=== PATIENT | female | born 1950 | race Caucasian/White ===

== ENCOUNTER 2017-09-19 15:00 | Emergency (ER) | payer OTHER ==
[2017-09-19 15:08] VITALS: BP 147/74; RESP 16; TEMP 98.6; O2SAT 96
[2017-09-19] MEDS ORDERED: PROPARACAINE 0.5% 15 ML OPHT DROP ONE (16:50)
[2017-09-19] MEDS ORDERED: FLUORESCEIN SODIUM 1 MG STRIP OP ONE ×2 (16:55→17:09)
--- NOTE | 2017-09-19 17:04 | EDPHY ---
HPI/HX/ROS/PE/MDM Narrative: CHIEF COMPLAINT: Swollen and painful eye HPI: The patient is a 67 y/o female complaining of a swollen and red eye. She has a history of diabetes with pump, dry eyes, diabetic retinopathy treated with laser, cataract surgery, hypertension, hypercholesterolemia, meningitis, and encephalitis. Yesterday she was scratching her nose when her finger slipped and her nail went into her eye. Since then her eye has been swollen, red, and teary but she is able to see out of it. She has a headache. She denies any other associated symptoms. REVIEW OF SYSTEMS: Aside from elements discussed in the HPI, a comprehensive 10-point review of systems was reviewed and is negative. PMH: Diabetes with pump, dry eyes, cardiac stents, hypertension, hypercholesterolemia, meningitis, encephalitis, diabetic retinopathy laser treatment, cataract surgery SOCIAL HISTORY: Granddaughter at bedside, has a sister nearby, Dr. Dunaway for cataract surgery PHYSICAL EXAM: General:Patient is alert, in no acute distress. ENT: Right eye: triangular shaped corneal abrasions in the 5 o'clock and 2 o' clock positions, no streaming. Irregular pupil in medial aspect. ENT normal except noted. Neck: Normal inspection. Full range of motion. Respiratory:No respiratory distress. Breath sounds normal bilaterally. Cardiovascular: Regular rate and rhythm. Strong peripheral pulses. Normal cap refill. Skin: Normal color. No rash. Warm and dry. Extremities: Normal appearance. Full range of motion. Neuro: Oriented x3. Normal motor function. Normal sensory function. ED Course: I examined the patients eye with dye and found above noted abnormalities. I have asked her to contact her sister to determine what her baseline eye condition is. 1708: I consulted with Dr. Soriano, ophthalmology, regarding this patient. She confirms that the patient's previous procedures could cause a misshaped cornea. I feel she can be released as long as she agrees to follow up with her eye doctor tomorrow. She agrees. Follow-up instructions and return precautions given. MDM: This patient presents with signs and history highly suggestive of corneal abrasion, and this is cofirmed with flurorscein exam. Slit lamp did not reveals signs of globe rupture, but pupil noted to be mildly deformed, and patient is unclear whether this is chronic or new. I discussed the patient's ocular surgical history with the on-call kiln packer, who feels that a deformed pupil is likely secondary to prior surgery, so we will treat her for simple corneal abrasion - she is comfortable with this plan. I stressed the need for her to follow-up with her eyeglass frames polisher tomorrow morning without fail for repeat exam. - Data Points Medications Given: Discontinued Medications Fluorescein Sodium (Ukfda-I-Nujvw) 1 mg OP EDNOW ONE Stop: 09/19/17 17:10 Last Admin: 09/19/17 17:10 Dose: 1 mg Proparacaine HCl (Alcaine 0.5%) 1 drops OP EDNOW ONE Stop: 09/19/17 17:07 Last Admin: 09/19/17 17:07 Dose: 1 drop General Time Seen by Provider: 09/19/17 16:12 Initial Vital Signs: Initial Vital Signs Temperature (C) 37.0 C 09/19/17 15:02 Heart Rate 71 09/19/17 15:02 Respiratory Rate 16 09/19/17 15:02 Blood Pressure 147/74 H 09/19/17 15:02 O2 Sat (%) 96 09/19/17 15:02 O2 Delivery Mode Room Air Allergies/Adverse Reactions: erythromycin lactobionate [From Erythrocin] Allergy (Unknown, Verified 03/09/12 17:36) Other-Enter Comments Home Medications: Medication Instructions Recorded Aspirin 81mg (*) 09/19/17 Crestor 09/19/17 HCTZ (*) 09/19/17 Hydrocodone/APAP 5/325 [Villalba 1 - 2 tab PO Q4H PRN #10 tab 09/19/17 5/325 (RX)] Insulin Pump Cartridge 09/19/17 Lisinopril 09/19/17 Ofloxacin 0.3% [Ocuflox 0.3%] 1 drops OP QID 7 Days opht.btl 09/19/17 Plavix 09/19/17 Departure - Departure Disposition: Home, Routine, Self-Care Clinical Impression: Corneal abrasion Condition: Good Instructions: Corneal Abrasion (ED) Additional Instructions: 1. Follow-up with your ear doctor tomorrow. 2. Return to the ED for worsening of condition. Referrals: Brooke Nevarez MD [Primary Care Provider] - As per Instructions Prescriptions: Hydrocodone/APAP 5/325 [Villalba 5/325 (RX)] 1 - 2 tab PO Q4H PRN #10 tab PRN Reason: Pain, Moderate Ofloxacin 0.3% [Ocuflox 0.3%] 1 drops OP QID 7 Days opht.btl Report Scribed for: Daren Vick Report Scribed by: Parris Godoy Date of Report: 09/19/17 Time of Report: 16:46 Physician Review and Approval Statement: Portions of this note were transcribed by an ED scribe. I personally performed the history, physical exam, and medical decision making; and confirm the accuracy of the information in the transcribed note.
[2017-09-19] MEDS ORDERED: PROPARACAINE 0.5% 15 ML OPHT DROP OP ONE (17:06)
[2017-09-19 17:22] VITALS: PULSE 68
== END 2017-09-19 17:20 | disposition home or self-care (01) ==
DX: S05.01XA Injury of conjunctiva and corneal abrasion without foreign body, right eye, initial encounter (principal); W22.8XXA Striking against or struck by other objects, initial encounter; E11.9 Type 2 diabetes mellitus without complications; I10 Essential (primary) hypertension; Z79.82 Long term (current) use of aspirin; Z79.4 Long term (current) use of insulin; Z79.01 Long term (current) use of anticoagulants

== ENCOUNTER → 2017-10-26 | Outpatient (CLI) | payer OTHER | LOC: FIMAGING 14:20 | PROVIDERS: ATTEND Internal Medicine | DX: Z12.31 Encounter for screening mammogram for malignant neoplasm of breast (principal) | CPT/HCPCS: G0202 ==

== ENCOUNTER → 2017-11-11 | Outpatient (CLI) | payer OTHER | LOC: FIMAGING 14:55 | PROVIDERS: ATTEND Internal Medicine | DX: R92.1 Mammographic calcification found on diagnostic imaging of breast (principal) ==

== ENCOUNTER → 2017-11-30 | Outpatient (CLI) | payer OTHER | LOC: FIMAGING 14:55 | PROVIDERS: ATTEND Internal Medicine | DX: Z13.820 Encounter for screening for osteoporosis (principal); M81.0 Age-related osteoporosis without current pathological fracture; Z78.0 Asymptomatic menopausal state; Z82.62 Family history of osteoporosis ==

== ENCOUNTER → 2017-12-14 | Day surgery (SDC) | payer OTHER ==
[~2017-12-14] MED LIST: BUPIVACAINE 0.5% 30 ML SDV ONE; LIDOCAINE 1% 300 MG/30 ML SDV ONE; THROMBIN (BOVINE) 5,000 UNIT VIAL TP ONE
== END | disposition home or self-care (01) ==
LOC: FIMAGING 07:10
PROVIDERS: ATTEND Internal Medicine Endocrinology, Diabetes & Metabolism
PROC: 0HBT3ZX Excision of Right Breast, Percutaneous Approach, Diagnostic (ICD-10-PCS; principal; 2017-12-14)
PROC: BH00ZZZ Plain Radiography of Right Breast (ICD-10-PCS; principal; 2017-12-14)
DX: D24.1 Benign neoplasm of right breast (principal); N60.11 Diffuse cystic mastopathy of right breast; N60.21 Fibroadenosis of right breast; R92.1 Mammographic calcification found on diagnostic imaging of breast

== ENCOUNTER → 2018-07-25 | Outpatient (CLI) | payer OTHER | LOC: FIMAGING 13:34 | PROVIDERS: ATTEND Internal Medicine | DX: M53.3 Sacrococcygeal disorders, not elsewhere classified (principal); I70.90 Unspecified atherosclerosis; M25.551 Pain in right hip; M25.552 Pain in left hip; R92.8 Other abnormal and inconclusive findings on diagnostic imaging of breast ==

== ENCOUNTER 2019-03-19 05:06 | Emergency (ER) | payer OTHER ==
[2019-03-19 05:13] VITALS: BP 171/64
--- NOTE | 2019-03-19 05:56 | EDPHY ---
H & P Stated Complaint: L leg pain, L foot swelling since 1400 Time Seen by Provider: 03/19/19 05:15 HPI/ROS: HPI The patient presents with left leg pain which has been present since last night which started slowly and got progressively worse which she feels mostly in her posterior thigh and popliteal fossa. She has never had this pain before. She has not had any recent trauma. She has not had any swelling of the calf though feels the thigh may be swollen. She does not have any numbness or tingling. She does not have any changes to the skin. She tried massage, however this did not work. She denies any low back pain. REVIEW OF SYSTEMS 10 systems were reviewed and negative with the exception of the elements mentioned in the history of present illness. PMHx: Diabetes on insulin, hypertension, CAD Soc Hx: Housed, here with her family PHYSICAL General Appearance: Alert, no distress Eyes: Pupils equal and round no pallor or injection ENT, Mouth: Mucous membranes moist Respiratory: There are no retractions, lungs are clear to auscultation Cardiovascular: Regular rate and rhythm Gastrointestinal: Abdomen is soft and non-tender, no masses, bowel sounds normal Neurological: A&O, moves all extremities Skin: Warm and dry, no rashes Musculoskeletal: There is no lumbar spinal tenderness Extremities: There is no tenderness throughout her left leg, there is no skin change, I do not appreciate any asymmetric edema, 2+ DP pulses, strength is full Psychiatric: Patient is oriented X 3, there is no agitation Source: Patient, Family Exam Limitations: No limitations - Personal History Current Tetanus/Diphtheria Vaccine: Yes Tetanus Vaccine Date: 2015 - Medical/Surgical History Hx Asthma: No Hx Chronic Respiratory Disease: No Hx Diabetes: Yes Hx Cardiac Disease: Yes Hx Renal Disease: No Hx Cirrhosis: No Hx Alcoholism: No Hx HIV/AIDS: No Hx Splenectomy or Spleen Trauma: No Other PMH: Diabetes ins pump, HTN, CAD with stents, osteoporosis, hysterectomy - Social History Smoking Status: Former smoker Constitutional: Initial Vital Signs Temperature (C) 36.6 C 03/19/19 05:08 Heart Rate 65 03/19/19 05:08 Respiratory Rate 18 03/19/19 05:08 Blood Pressure 171/64 H 03/19/19 05:08 O2 Sat (%) 94 03/19/19 05:08 O2 Delivery Mode Room Air Allergies/Adverse Reactions: erythromycin lactobionate [From Erythrocin] Allergy (Unknown, Verified 03/19/19 05:11) Other-Enter Comments erythromycin lactobionate Allergy (Unknown, Uncoded 07/04/18 10:14) Other-Enter Comments Home Medications: Medication Instructions Recorded Aspirin EC [Aspirin EC 81 mg (*)] 81 mg PO DAILY 09/19/17 Clopidogrel Bisulfate [Plavix (*)] 75 mg PO DAILY 09/19/17 Insulin Pump, Patient Own 1 ea MIS AD 09/19/17 Lisinopril [Zestril 5 mg (*)] 5 mg PO DAILY 09/19/17 Rosuvastatin Calcium [Crestor 40mg 40 mg PO HS 09/19/17 (*)] Alendronate Sodium [Fosamax 70 MG 70 mg PO WE@0700 06/30/18 (*)] Calcium Carbonate/Vitamin D3 2 each PO DAILY 06/30/18 [Calcium 600-Vit D3 400 Tablet] Canagliflozin [Invokana] 300 mg PO DAILY@08 06/30/18 Cholecalciferol Vit D3 [Vitamin D3 2,000 units PO DAILY 06/30/18 2000 units tab (OTC)] Nebivolol HCl [Bystolic] 2.5 mg PO HS 06/30/18 PARoxetine HCL [Paxil 20mg (*)] 20 mg PO DAILY 06/30/18 Medical Decision Making Procedures: Bedside 2 point DVT Ultrasound- performed and interpreted by me. Indication: Atraumatic right leg pain Findings: Compression at the popliteal fossa of the popliteal vein, compression in the inguinal region of the common femoral vein Impression: No sign of DVT Differential Diagnosis: 68-year-old female with atraumatic left leg pain for the last several hours. The pain has improved significantly since arriving in the emergency department. Bedside DVT ultrasound was done and was unremarkable. Electrolytes were checked and potassium is normal. She does not have any low back pain, however sciatica is a consideration as well as muscle spasm. - Data Points Point of Care Test Results: Chemistry 03/19/19 05:47 POC Sodium 140 mEq/L mEq/L (135-145) POC Potassium 3.8 mEq/L mEq/L (3.3-5.0) POC Chloride 102 mEq/L mEq/L (97-110) POC Total CO2 28 mEq/L mEq/L (22-31) POC BUN 20 mg/dL mg/dL (7-23) POC Creatinine 0.9 mg/dL mg/dL (0.6-1.0) POC Glucose 181 mg/dL H mg/dL (70-100) ISTAT H&H 03/19/19 05:47 POC Hgb 15.0 gm/dL gm/dL (12.6-16.3) POC Hct 44 % % (38-47) Departure - Departure Disposition: Home, Routine, Self-Care Clinical Impression: Leg pain, posterior Condition: Good Instructions: Leg Pain (ED) Additional Instructions: The pain in her leg could be coming from pain of the nerve verses a muscle spasm or a combination of these things. I would recommend you use ice or heat on the leg if the pain returns. You should use ibuprofen or Tylenol as needed for pain. If your pain continues, you should return to the emergency department. Referrals: Magy Barrios MD [Primary Care Provider] - As per Instructions
== END 2019-03-19 06:02 | disposition home or self-care (01) ==
DX: M79.662 Pain in left lower leg (principal); I10 Essential (primary) hypertension; E11.9 Type 2 diabetes mellitus without complications; Z79.4 Long term (current) use of insulin
CPT/HCPCS: 82435-PO; 82565-PO; 82947-PO; 84132-PO; 84295-PO; 84520-PO; 85014-ER

== ENCOUNTER → 2019-04-14 | Outpatient (CLI) | payer OTHER | LOC: FIMAGING 12:40 ==

== ENCOUNTER 2019-04-17 12:42 | Observation (INO) | payer OTHER | END 2019-04-18 16:00 | disposition home or self-care (01) | LOC: F3E 17:48 ==